=== PATIENT | male | born 1955 | race African-American/Black ===

== ENCOUNTER 2023-10-28 10:27 | Outpatient (CLI) | payer MEDICARE | END 2023-10-28 10:28 | disposition home or self-care (01) | LOC: BICRAD 10:27 | PROVIDERS: ATTEND Internal Medicine Cardiovascular Disease | DX: I47.20 Ventricular tachycardia, unspecified (principal); Z92.29 Personal history of other drug therapy | CPT/HCPCS: 71046 ==